=== PATIENT | male | born 1960 | race Caucasian/White ===

== ENCOUNTER 2021-12-30 07:47 | Day surgery (SDC) | payer BC ==
[~2021-12-30] VITALS: Ht 175.3 cm; Wt 105.3 kg
[2021-12-30] MEDS ORDERED: EUTHYROX175 MCG (08:27)
[2021-12-30] MEDS ORDERED: ATOR40TA (08:29)
--- NOTE | 2021-12-30 08:56 | NUR ---
12/30/21 0856 GURJIT KING 2 ATTEMPTS AT IV. FIRST ATTEMPT BY MA IN R HAND INFILTRATED. SECOND ATTEMPT BY MA IN L HAND SUCCESSFUL.
== END 2021-12-30 10:00 | disposition home or self-care (01) ==
LOC: ORSCSDS 07:47 → ORSCMMR 09:15 → ORSCSDS 09:15 → ORD 09:15 → ORSCSDS 10:00
PROVIDERS: Surgery
PROC: 0DBM8ZX Excision of Descending Colon, Via Natural or Artificial Opening Endoscopic, Diagnostic (ICD-10-PCS; principal; 2021-12-30 09:15)
DX: Z12.11 Encounter for screening for malignant neoplasm of colon (principal); Z86.010 Personal history of colon polyps; D12.4 Benign neoplasm of descending colon; K21.9 Gastro-esophageal reflux disease without esophagitis; Z79.899 Other long term (current) drug therapy
CPT/HCPCS: 88305; J2704; J7120